=== PATIENT | male | born 1995 | race Two or more races ===

== ENCOUNTER 2020-09-03 22:46 | Emergency (ER) | payer OTHER ==
[~2020-09-03] VITALS: Ht 180.3 cm; Wt 72.6 kg
[~2020-09-03 22:46] MED LIST: TYLENOL EXTRA500 MG ORAL
[2020-09-03] MEDS ORDERED: LORazepam Inj 2mg/ml 1ml ONE (22:56)
[2020-09-03 23:00] VITALS: BP 134/93
[2020-09-03] MEDS ORDERED: LORazepam Inj 2mg/ml 1ml IM ONE (23:00)
--- NOTE | 2020-09-03 23:04 | NUR ---
ED Nurse Note: Pt brought in by ambulance. Per EMS pt had ingested some cocaine and had extreeme anxiety. Pt is tearfull in asessment. PT is ambulatory and axox4. His vitals are stable on RA>
--- NOTE | 2020-09-03 23:56 | NUR ---
ED Nurse Note: Pt is resting with eyes closed. Breathing is even and unlabored. No signs of distress noted.
[2020-09-04 01:16] VITALS: BP 120/80
--- NOTE | 2020-09-04 01:36 | Emergency Room Report ---
History of Present Illness General Chief Complaint: Behavioral Complaint Source: Patient, EMS Present Illness HPI 24-year-old male presents for anxiety. Brought in by EMS from Street. States he used cocaine today. Feels very anxious. Denies chest pain or shortness of breath. Denies fevers or chills. Denies SI or HI. Denies any other drug use. No other aggravating relieving factors. Denies any other associated symptoms Allergies: Coded Allergies: NO KNOWN DRUG ALLERGIES (Unverified Allergy, Unknown, 02/19/15) COVID-19 Screening Contact w/high risk pt: No Experienced COVID-19 symptoms?: No COVID-[address] [employer]: No Patient History Past Medical History: none Past Surgical History: none Pertinent Family History: none Social History: Reports: drug use; Denies: smoking, alcohol use Immunizations: UTD Reviewed Nursing Documentation: PMH: Agreed; PSxH: Agreed Nursing Documentation-PMH Past Medical History: No Stated History Review of Systems All Other Systems: negative except mentioned in HPI Physical Exam Vital Signs Date Time Temp Pulse Resp B/P (MAP) Pulse Ox O2 Delivery O2 Flow Rate FiO2 09/03/20 22:48 97.9 91 18 134/93 (107) 98 Room Air Sp02 EP Interpretation: reviewed, normal General Appearance: no apparent distress, alert, GCS 15, non-toxic Head: normocephalic, atraumatic Eyes: bilateral eye normal inspection, bilateral eye PERRL ENT: hearing grossly normal, normal pharynx, no angioedema, normal voice Neck: full range of motion, supple/symm/no masses Respiratory: chest non-tender, lungs clear, normal breath sounds, speaking full sentences Cardiovascular #1: regular rate, rhythm, no edema Cardiovascular #2: 2+ carotid (R), 2+ carotid (L), 2+ radial (R), 2+ radial (L), 2+ dorsalis pedis (R), 2+ dorsalis pedis (L) Gastrointestinal: normal bowel sounds, non tender, soft, non-distended, no guarding, no rebound Rectal: deferred Genitourinary: normal inspection, no CVA tenderness Musculoskeletal: back normal, normal range of motion, gait/station normal, non- tender Neurologic: alert, motor strength/tone normal, oriented x3, sensory intact, responsive, speech normal Psychiatric: judgement/insight normal, memory normal, no suicidal/homicidal ideation, anxious Reflexes: 3+ bicep (R), 3+ bicep (L), 3+ tricep (R), 3+ tricep (L), 3+ knee (R), 3+ knee (L) Lymphatic: no adenopathy Medical Decision Making Homeless Attestation I, The treating physician Dr. Parrish, have assessed and agrees that patient is medically stable for discharge to an outpatient disposition. Diagnostic Impression: Primary Impression: Substance abuse Additional Impression: Anxiety Last Vital Signs Date Time Temp Pulse Resp B/P (MAP) Pulse Ox O2 Delivery O2 Flow Rate FiO2 09/04/20 01:16 98.7 91 14 120/80 97 Room Air Referrals: [facility],REFERRING (PCP) Otto Parrish MD Sep 04, 2020 01:36
[2020-09-04 03:45] VITALS: BP 115/80
--- NOTE | 2020-09-04 03:46 | NUR ---
ED Nurse Note: PT is resting comfortably with eyes closed, breathing is even and unlabored.
[2020-09-04 05:30] VITALS: BP 125/80
--- NOTE | 2020-09-04 05:30 | NUR ---
ER DISCHARGE NOTE: Patient is cleared to be discharged per ERMD, pt is aox4, on room air, with stable vital signs. pt was given dc and prescription instructions, pt was able to verbalize understanding, pt id band removed. pt is able to ambulate with steady gait. pt took all belongings.
== END 2020-09-04 05:30 | disposition other institution (70) ==
LOC: EDBD 22:46 → EMR 23:00
DX: F14.10 Cocaine abuse, uncomplicated (principal); F41.9 Anxiety disorder, unspecified
CPT/HCPCS: 96372; Z7502; 99283